=== PATIENT | male | born 1945 | race Caucasian/White ===

== ENCOUNTER 2023-02-08 08:03 | Day surgery (SDC) | payer MEDICARE, OTHER ==
[~2023-02-08] VITALS: Ht 167.6 cm; Wt 73.5 kg
[~2023-02-08 08:03] MED LIST: BSS IRRIG/VANCO(10MG)/TOBRA(5MG)/EPINEPH(1:1000-0.5CC)500ML BAG-ORONLY IR ONE; CEFUROXIME 1MG/0.1ML INTRACAMERAL INJ As Ordered ONE; CYCLOPENTOLATE 1% OPHTH SOLN 2ML BTL OS SCH; LIDOCAINE 1% SDV 5ML VIAL As Ordered ONE; LIDOCAINE 3.5 % 1ML OPHTH TOPICAL GEL OU ONE; MULT-90 PO; OFLOXACIN 0.3 % (OCUFLOX) OPTH SOL 5ML OS ONE; PHENYLEPHRINE 10% OPHTH SOL 5ML OS PRN; PHENYLEPHRINE 2.5% OPHTH SOL 2ML OS SCH; TROPICAMIDE 1% OPHTH SOLN 15ML OS SCH; [UNRECOGNIZED DRUG - OTHER]; amlodipine; lisinopril; metoprolol
[2023-02-08] MEDS ORDERED: fentaNYL 100 MCG/2 ML INJECTION As Ordered ONE (09:21)
[2023-02-08] MEDS ORDERED: MIDAZOLAM INJ 2MG/2ML VIAL As Ordered ONE (09:21)
[2023-02-08] MEDS ORDERED: DUOVISC (0.50ML VISCOAT/0.85ML PROVISC) OPHTH KIT As Ordered ONE (09:24)
[2023-02-08 09:39] VITALS: BP 164/85; TEMP 97.9; O2SAT 96
== END 2023-02-08 10:16 | disposition home or self-care (01) ==
LOC: M SDC 08:03 → EDBD 09:00 → M SDC 10:16
PROVIDERS: ATTEND Ophthalmology
DX: E11.36 Type 2 diabetes mellitus with diabetic cataract (principal); H26.9 Unspecified cataract; H40.9 Unspecified glaucoma; I10 Essential (primary) hypertension; E78.00 Pure hypercholesterolemia, unspecified; Z79.899 Other long term (current) drug therapy; Z87.891 Personal history of nicotine dependence; Z95.1 Presence of aortocoronary bypass graft
CPT/HCPCS: 66711; 66991; 92015; C1783; J0697; J2250; J3010; V2632

== ENCOUNTER 2023-02-22 06:49 | Day surgery (SDC) | payer MEDICARE, OTHER ==
[~2023-02-22] VITALS: Ht 167.6 cm; Wt 73.2 kg
[~2023-02-22 06:49] MED LIST changes: +AMLO1TAB25 PO; -CYCLOPENTOLATE 1% OPHTH SOLN 2ML BTL OS SCH; +LISI10TA22 PO; +METO1TAB32 PO; +OFLOXACIN 0.3 % (OCUFLOX) OPTH SOL 5ML OD ONE; -OFLOXACIN 0.3 % (OCUFLOX) OPTH SOL 5ML OS ONE; +PHENYLEPHRINE 10% OPHTH SOL 5ML OD PRN; -PHENYLEPHRINE 10% OPHTH SOL 5ML OS PRN; -PHENYLEPHRINE 2.5% OPHTH SOL 2ML OS SCH; -TROPICAMIDE 1% OPHTH SOLN 15ML OS SCH
[2023-02-22] MEDS: CYCLOPENTOLATE 1% OPHTH SOLN 2ML BTL OD SCH ×2 (06:57→07:24)
[2023-02-22] MEDS: PHENYLEPHRINE 2.5% OPHTH SOL 2ML OD SCH ×2 (06:57→07:24)
[2023-02-22] MEDS: TROPICAMIDE 1% OPHTH SOLN 15ML OD SCH ×2 (06:57→07:24)
[2023-02-22] MEDS ORDERED: MIDAZOLAM INJ 2MG/2ML VIAL As Ordered ONE (08:25)
[2023-02-22] MEDS ORDERED: fentaNYL 100 MCG/2 ML INJECTION As Ordered ONE (08:25)
[2023-02-22 08:56] VITALS: BP 198/93; TEMP 97.9; O2SAT 97
== END 2023-02-22 09:10 | disposition home or self-care (01) ==
LOC: M SDC 06:49
PROVIDERS: ATTEND Ophthalmology
DX: H25.11 Age-related nuclear cataract, right eye (principal); H40.1112 Primary open-angle glaucoma, right eye, moderate stage; E11.9 Type 2 diabetes mellitus without complications; I10 Essential (primary) hypertension; Z79.899 Other long term (current) drug therapy
CPT/HCPCS: 66991; C1783; J0697; J2250; J3010; V2632